=== PATIENT | female | born 1980 | race Caucasian/White ===

== ENCOUNTER 2016-10-24 15:39 | Emergency (ER) | payer BC ==
[~2016-10-24] VITALS: Ht 160 cm; Wt 68.0 kg
[2016-10-24 15:42] VITALS: BP 134/81; PULSE 74; RESP 18; TEMP 97.4; O2SAT 98
--- NOTE | 2016-10-24 16:04 | NUR ---
Patient to ER bed 2 to gown for evaluation. Side rails up. Report given to Maryam SCHNEIDER.
--- NOTE | 2016-10-24 16:10 | NUR ---
Pt brought in by in stable condition. Pt c/o left sided chest pain 5/10 w/ numbness and tingling to left arm. Pt stated that she was driving and had sudden onset of chest pain and by the time she arrived home her left arm was numb. Pt stated that left chest feels sore at this time. Pt stated that she took 2 Tylenol at home but it was ineffective. -sob. Placed pt on quality assurance monitor final. No acute distress noted at this time, will continue to monitor
--- NOTE | 2016-10-24 16:10 | NUR ---
ER at bedside examining patient.
[2016-10-24 16:41] LABS: BILIRUBIN,URINE NEGATIVE (NEGATIVE); BLOOD, URINE 2+ (NEGATIVE); CLARITY/URINE CLEAR (CLEAR); COLOR,URINE YELLOW (YELLOW); GLUCOSE,URINE NEGATIVE (NEGATIVE); KETONES,URINE NEGATIVE (NEGATIVE); LEUKOCYTE ESTERASE ,URINE TRACE (NEGATIVE); NITRITE, URINE NEGATIVE (NEGATIVE); PH,URINE 7.5 (5.0-8.0); PROTEIN URINE NEGATIVE (NEGATIVE); UROBILINOGEN,URINE 0.2 (0.2-1.0)
[2016-10-24 16:47] LABS: BASOPHILS % (AUTO) 0.6 % (0.0-2.0); EOSINOPHILS # (AUTO) 0.1 K/uL (0.0-0.4); EOSINOPHILS % (AUTO) 1.8 % (0.0-4.0); HEMOGLOBIN 13.9 g/dL (12.0-16.0); LYMPHOCYTES # (AUTO) 3.2 K/uL (1.0-5.5); LYMPHOCYTES % (AUTO) 41.2 % (20.5-51.5); MEAN CORPUSCULAR HEMOGLOBIN 30 pg (27-31); MEAN CORPUSCULAR HGB CONC 35 % (32-36); MEAN CORPUSCULAR VOLUME 87 fL (79.0-98.0); MONOCYTES # (AUTO) 0.5 K/uL (0.0-1.0); MONOCYTES % (AUTO) 6.7 % (1.7-9.3); NEUTROPHILS # (AUTO) 3.9 K/uL (1.8-7.7); NEUTROPHILS % (AUTO) 49.7 % (40.0-70.0); PLATELET COUNT (AUTO) 252 K/uL (130-430); RED BLOOD CELL COUNT(AUTO) 4.59 MIL/uL (4.2-6.2); RED CELL DISTRIBUTION WIDTH 11.2 % (9.0-15.0); WHITE BLOOD COUNT (AUTO) 7.7 K/uL (4.8-10.8)
[2016-10-24 16:57] LABS: CALCIUM 8.9 mg/dL (8.4-11.0); CREATININE 0.86 mg/dL (0.55-1.30); POTASSIUM 3.8 mmol/L (3.5-5.1)
[2016-10-24 17:01] LABS: BACTERIA,URINE RARE /HPF (None Seen); WBC,URINE 0-3 /HPF (0-3)
[2016-10-24 17:02] LABS: ALBUMIN 4.1 g/dL (3.4-4.8); TOTAL BILIRUBIN 0.3 mg/dL (0.0-1.0); TOTAL PROTEIN, SERUM 7.7 g/dL (6.4-8.3)
--- NOTE | 2016-10-24 17:15 | NUR ---
Dr. Hoffmann at bedside updating patient and family
[2016-10-24 17:18] VITALS: BP 120/76; PULSE 73; RESP 11; TEMP 98.6; O2SAT 100
--- NOTE | 2016-10-24 17:18 | NUR ---
Patient given written and verbal discharge instructions and verbalizes understanding. ER MD Hoffmann discussed with patient the results and treatment provided. Patient in stable condition. ID arm band removed. Rx of Ibuprofen 600 given. Patient educated on pain management and to follow up with PMD. Pain Scale 2/10. Opportunity for questions provided and answered.
== END 2016-10-24 17:18 | disposition home or self-care (01) ==
LOC: SED 15:39
DX: M94.0 Chondrocostal junction syndrome [Tietze] (principal); F41.9 Anxiety disorder, unspecified
CPT/HCPCS: 36415; 71010; 80053; 81000-TC; 81025; 84484; 85025; 93005; 99285

== ENCOUNTER 2017-07-17 16:08 | Emergency (ER) | payer BC ==
[~2017-07-17] VITALS: Ht 160 cm; Wt 73.9 kg
[2017-07-17 16:25] VITALS: BP_SYST 129
[2017-07-17] MEDS ORDERED: MAG HYDROX/AL HYDROX/SIMETH 30 ML, BELLADONNA ALKALOIDS/PHENOBARB 10 ML, LIDOCAINE VISC... PO ONE ×3 (17:00)
[2017-07-17 18:45] VITALS: BP_SYST 127
== END 2017-07-17 18:45 | disposition home or self-care (01) ==
LOC: SED 16:08
DX: R09.89 Other specified symptoms and signs involving the circulatory and respiratory systems (principal); R03.0 Elevated blood-pressure reading, without diagnosis of hypertension
CPT/HCPCS: 70490; 81025; 99284; J2001

== ENCOUNTER 2019-05-11 02:00 | Inpatient (IN) | payer BC ==
[~2019-05-11] VITALS: Ht 160 cm; Wt 86.2 kg
[2019-05-11] MEDS ORDERED: LR 1,000 ML IV SCH (02:33)
[2019-05-11] MEDS ORDERED: TERBUTALINE SULFATE 1 MG/ML VIAL SUBCUT ONE (02:45)
[2019-05-11] MEDS ORDERED: CEFAZOLIN 2 GM IVPB PREMIX 50 ML IV ONE ×2 (02:45→03:53)
[2019-05-11] MEDS ORDERED: TERBUTALINE SULFATE 1 MG/ML VIAL ONE (02:54)
[2019-05-11 03:00] LABS: BASOPHILS # (AUTO) 0.1 K/uL (0.0-0.2); BASOPHILS % (AUTO) 0.7 % (0.0-2.0); EOSINOPHILS # (AUTO) 0.2 K/uL (0.0-0.4); EOSINOPHILS % (AUTO) 1.6 % (0.0-4.0); HEMATOCRIT 33.7 % (36-48); HEMOGLOBIN 11.8 g/dL (12.0-16.0); LYMPHOCYTES # (AUTO) 2.6 K/uL (1.0-5.5); LYMPHOCYTES % (AUTO) 22.2 % (20.5-51.5); MEAN CORPUSCULAR HEMOGLOBIN 31 pg (27-31); MEAN CORPUSCULAR HGB CONC 35 % (32-36); MEAN CORPUSCULAR VOLUME 89 fL (79.0-98.0); MONOCYTES % (AUTO) 8.9 % (1.7-9.3); NEUTROPHILS # (AUTO) 7.7 K/uL (1.8-7.7); NEUTROPHILS % (AUTO) 66.6 % (40.0-70.0); PLATELET COUNT (AUTO) 239 K/uL (130-430); RED CELL DISTRIBUTION WIDTH 13.4 % (9.0-15.0); WHITE BLOOD COUNT (AUTO) 11.6 K/uL (4.8-10.8)
[2019-05-11 03:06] LABS: BILIRUBIN,URINE NEGATIVE (NEGATIVE); BLOOD, URINE 2+ (NEGATIVE); CLARITY/URINE CLEAR (CLEAR); COLOR,URINE YELLOW (YELLOW); GLUCOSE,URINE NEGATIVE (NEGATIVE); KETONES,URINE NEGATIVE (NEGATIVE); LEUKOCYTE ESTERASE ,URINE 2+ (NEGATIVE); NITRITE, URINE NEGATIVE (NEGATIVE); PROTEIN URINE NEGATIVE (NEGATIVE); UROBILINOGEN,URINE 0.2 (0.2-1.0)
[2019-05-11 03:23] LABS: BACTERIA,URINE FEW /HPF (None Seen)
[2019-05-11] MEDS ORDERED: MIDAZOLAM HCL 5 MG/5 ML VIAL IVP ONE (03:30)
[2019-05-11] MEDS ORDERED: LR 1,000 ML IV.SOLN IV ONE (03:30)
[2019-05-11] MEDS ORDERED: MORPHINE SULFATE 10MG/10ML PF AMP EP ONE (03:30)
[2019-05-11] MEDS ORDERED: KETOROLAC TROMETHAMINE 30 MG VIAL IVP ONE (03:30)
[2019-05-11] MEDS ORDERED: OXYTOCIN 10 UNIT/ML VIAL IV ONE (03:30)
[2019-05-11] MEDS ORDERED: BUPIVACAINE /DEX PF 0.75% SPINAL 2 ML AMP INJ ONE (03:30)
[2019-05-11] MEDS ORDERED: ONDANSETRON HCL 4 MG/2 ML VIAL IVP ONE (03:30)
[2019-05-11] MEDS ORDERED: NS IRRIG SOLN 1000 ML IR ONE (03:30)
[2019-05-11] MEDS ORDERED: OXYTOCIN/0.9 % SODIUM CHLORIDE 1,000 ML IV ONE (03:40)
[2019-05-11] MEDS ORDERED: MEPERIDINE HCL/PF 50 MG/ML AMP IVP PRN (03:45)
[2019-05-11] MEDS ORDERED: LANOLIN 7 GM OINT. TP PRN (03:45)
[2019-05-11] MEDS ORDERED: SENNOSIDES/DOCUSATE SODIUM 1 TAB TABLET(SENOKOT-S) PO PRN (03:45)
[2019-05-11] MEDS ORDERED: BISACODYL 10 MG/SUPPOSITORY RC PRN (03:45)
[2019-05-11 04:04] VITALS: BP_SYST 127
[2019-05-11] MEDS ORDERED: KETOROLAC TROMETHAMINE 60 MG/2 ML VIAL IM PRN (04:15)
[2019-05-11] MEDS ORDERED: fentaNYL CITRATE/PF 100 MCG/2 ML AMP IVP PRN ×2 (04:15)
[2019-05-11] MEDS ORDERED: DIPHENHYDRAMINE INJ 50 MG/ML VIAL IVP PRN (04:15)
[2019-05-11] MEDS ORDERED: MORPHINE SULFATE 10MG/10ML PF AMP SP SCH (04:15)
[2019-05-11] MEDS ORDERED: NALBUPHINE HCL 10 MG/ML AMP IVP PRN (04:15)
[2019-05-11] MEDS ORDERED: ONDANSETRON HCL 4 MG/2 ML VIAL IVP PRN (04:15)
[2019-05-11] MEDS ORDERED: NALOXONE HCL 0.4 MG/ML AMP (NARCAN) IVP PRN ×2 (04:15)
[2019-05-11] MEDS ORDERED: METHYLERGONOVINE MALEATE 0.2 MG/ML AMP ONE (04:21)
[2019-05-11 04:46] VITALS: BP_SYST 124
[2019-05-11] MEDS: CEFAZOLIN 1 GM IVPB PREMIX 50 ML IV SCH ×3 (10:24→21:29)
[2019-05-11] MEDS: SIMETHICONE 80 MG TAB.CHEW PO PRN (16:20)
[2019-05-11] MEDS: DOCUSATE SODIUM 100 MG CAPSULE PO PRN (16:20)
[2019-05-11] MEDS ORDERED: TEMAZEPAM 15 MG CAPSULE PO PRN (21:00)
[2019-05-12] MEDS: DOCUSATE SODIUM 100 MG CAPSULE PO PRN ×2 (00:11→21:11)
[2019-05-12] MEDS: SIMETHICONE 80 MG TAB.CHEW PO PRN ×3 (00:12→21:11)
[2019-05-12] MEDS: IBUPROFEN 800 MG TABLET PO PRN ×4 (00:12→18:23)
[2019-05-12] MEDS: OXYCODONE/ACETAMINOPHEN 5-325 TABLET PO PRN ×4 (00:13→21:11)
[2019-05-12 06:16] LABS: BASOPHILS % (AUTO) 0.2 % (0.0-2.0); EOSINOPHILS # (AUTO) 0.1 K/uL (0.0-0.4); HEMATOCRIT 31.2 % (36-48); HEMOGLOBIN 10.6 g/dL (12.0-16.0); LYMPHOCYTES # (AUTO) 2.2 K/uL (1.0-5.5); LYMPHOCYTES % (AUTO) 21.3 % (20.5-51.5); MEAN CORPUSCULAR HEMOGLOBIN 31 pg (27-31); MEAN CORPUSCULAR HGB CONC 34 % (32-36); MEAN CORPUSCULAR VOLUME 91 fL (79.0-98.0); MONOCYTES # (AUTO) 0.8 K/uL (0.0-1.0); MONOCYTES % (AUTO) 7.7 % (1.7-9.3); NEUTROPHILS # (AUTO) 7.2 K/uL (1.8-7.7); NEUTROPHILS % (AUTO) 69.8 % (40.0-70.0); PLATELET COUNT (AUTO) 211 K/uL (130-430); RED BLOOD CELL COUNT(AUTO) 3.44 MIL/uL (4.2-6.2); RED CELL DISTRIBUTION WIDTH 13.7 % (9.0-15.0); WHITE BLOOD COUNT (AUTO) 10.3 K/uL (4.8-10.8)
[2019-05-13] MEDS: IBUPROFEN 800 MG TABLET PO PRN ×5 (00:19→21:12)
[2019-05-13] MEDS: OXYCODONE/ACETAMINOPHEN 5-325 TABLET PO PRN ×4 (02:39→23:52)
[2019-05-13] MEDS: DOCUSATE SODIUM 100 MG CAPSULE PO PRN ×2 (14:53→23:52)
[2019-05-13] MEDS: SIMETHICONE 80 MG TAB.CHEW PO PRN ×2 (14:54→23:51)
[2019-05-13] MEDS ORDERED: IBUPROFEN 800 MG TABLET ONE (21:24)
[2019-05-14] MEDS: IBUPROFEN 800 MG TABLET PO PRN ×3 (03:29→14:34)
[2019-05-14] MEDS: OXYCODONE/ACETAMINOPHEN 5-325 TABLET PO PRN ×3 (06:17→14:35)
[2019-05-14] MEDS: SIMETHICONE 80 MG TAB.CHEW PO PRN (09:15)
[2019-05-14] MEDS: DOCUSATE SODIUM 100 MG CAPSULE PO PRN (09:15)
== END 2019-05-14 15:05 | disposition home or self-care (01) | DRG 788 ==
LOC: SPU 02:00
PROVIDERS: ADMIT Specialist; ATTEND Specialist
PROC: 10D00Z1 Extraction of Products of Conception, Low, Open Approach (ICD-10-PCS; principal; 2019-05-11 03:30)
DX: O34.211 Maternal care for low transverse scar from previous cesarean delivery (principal); O77.0 Labor and delivery complicated by meconium in amniotic fluid; O99.824 Streptococcus B carrier state complicating childbirth; Z3A.39 39 weeks gestation of pregnancy; Z37.0 Single live birth
CPT/HCPCS: 36415; 81000-TC; 85025; 86592; 86886; 86900; 86901; J0690; J1885; J2175; J2210; J2250; J2274; J2405; J2590; J3105; J3490; J7120